=== PATIENT | female | born 1985 | race Two or more races ===

== ENCOUNTER 2024-05-09 04:42 | Emergency (ER) | payer BC, OTHER ==
[~2024-05-09] VITALS: Ht 172.7 cm; Wt 159.0 kg
--- NOTE | 2024-05-09 05:07 | ED.PDOC ---
Altered Mental Status HPI Comments 38-year-old female who came to ER via EMS for alcohol intoxication. Per EMS, patient was found at home lying unresponsive at the bathroom floor. Family members who found her and called paramedics started CPR on her. Patient has pulses but agonal breathing, given Narcan 2mg intranasal and another 2 mg IM. Family stated patient possibly overdose on Percocet and alcohol. Patient fully awake at this time of care, denies drinking alcohol, states she only used weed. Chief Complaint: ETOH Time Seen by MD: 05:06 Reviewed Notes: Personnel Scheduler Notes Information Source: Emergency Med Personnel Mode of Arrival: EMS Severity: Unable to Care for Self Timing: Minutes Duration: Since onset Prehospital treatment: Treatment (Narcan) Quality: Decreased Alertness, Change in Behavior Recent: Medication/Drug Abuse Past Medical History PAST MEDICAL HISTORY: Denies Surgical History: Denies all surgeries LEAN FACILITATOR History: Denies all LEAN FACILITATOR Hx Family History Family History: Reviewed,noncontributory to illness Social History Smoker: Non-Smoker Alcohol: Occasionally Drugs: Denies Drug Use Lives In: Home Unable to Obtain due to: Altered Mental Status Physical Exam General Appearance: No Apparent Distress, Normal HEENT: Normal ENT Inspection, Pharynx Normal, TMs Normal Neck: Full Range of Motion, Non-Tender, Normal, Normal Inspection Respiratory: Chest Non-Tender, Lungs Clear, No Accessory Muscle Use, No Respiratory Distress, Normal Breath Sounds Cardiovascular: No Edema, No JVD, No Murmur, No Gallop, Normal Peripheral Pulses, Regular Rate/Rhythm Breast Exam: Deferred Gastrointestinal: No Organomegaly, Non Tender, No Pulsatile Mass, Normal Bowel Sounds, Soft Genitalia: Deferred Pelvic: Deferred Rectal: Deferred Extremities: No calf tenderness, Normal capillary refill, Normal inspection, Normal range of motion, Non-tender, No pedal edema Musculoskeletal : Apperance: Normal Neurologic: Alert, florist II-XII nml as Tested, No Motor Deficits, Normal Affect, Normal Mood, No Sensory Deficits Cerebellar Function: Normal Reflexes: Normal Skin: Dry, Normal Color, Warm Lymphatic: No Adenopathy Was a procedure done? Was a procedure done?: No Differential Diagnosis (ALOC) Differential Diagnosis: Encephalopathy, Closed Head Injury, Drug Overdose, ETOH Intoxication X-Ray, Labs, Meds, VS Vital Signs Date Time Temp Pulse Resp B/P (MAP) Pulse Ox O2 Delivery O2 Flow Rate FiO2 12/7/24 05:47 97.9 89 12 123/62 (82) 99 97.9 05/09/24 04:53 109 05/09/24 04:42 98.3 102 26 90/62 (71) 99 Time of 1ST Reevaluation: 05:00 Reevaluation 1ST: Unchanged Patient Education/Counseling: Diagnosis, Treatment Family Education/Counseling: No Family Present Departure 1 Departure Time of Disposition: 05:55 (Patient appears intoxicated however patient denies any alcohol ingestion. Patient's unsure of what else she did. We will check patient's labs and observe her until clinically sober.) Impression: Primary Impression: Intoxication Disposition: 30 STILL A PATIENT Condition: Serious Critical Care Note Critical Care Time?: No Stability Stability form required: No Heart Score Heart Score: Heart Score Response (Comments) Value History N/A 0 EKG N/A 0 Age N/A 0 Risk Factors N/A 0 Troponin N/A 0 Total 0 I personally scribed for DONALD FERRIS MD ([email or web address]) on 05/09/24 at 05:07. Electronically submitted by Garry Macias ([email or web address]). DONALD FERRIS MD May 09, 2024 05:07
[2024-05-09 05:54] VITALS: PULSE 89; RESP 12; O2SAT 99
[2024-05-09 07:18] LABS: Urine Bacteria None Seen /hpf (None Seen)
[2024-05-09 07:43] LABS: Amphetamine Screen, Urine Neg (NEGATIVE); Urine Blood Negative /uL (Negative); Urine Clarity Turbid (Clear); Urine Color Colorless (Yellow); Urine Hyaline Cast FEW /lpf (0 - 2); Urine Mucus FEW (None Seen); Urine Protein, UAD TRACE (Negative); Urine Specific Gravity 1.019 (1.001-1.035); Urine Urobilinogen Normal (Negative); Urine WBC 7 /hpf (0 - 5); Urine pH 5.5 (5.0-9.0)
[2024-05-09 07:44] LABS: Barbiturate Scree,Urine Neg (NEGATIVE); Benzodiazephine Screen, Urine Neg (NEGATIVE); Cannabinoid Screen, Urine Pos (NEGATIVE); Cocaine Screen, Urine Neg (NEGATIVE); Opiate Scree,Urine Neg (NEGATIVE); Phencyclidine Screen, Urine Neg (NEGATIVE)
[2024-05-09 08:00] VITALS: PULSE 78; RESP 18; TEMP 97.6; O2SAT 97
[2024-05-09 08:23] LABS: Anion Gap 8 (5-15); Carbon Dioxide 29 mmol/L (20-31); Chloride 104 mmol/L (98-107); Potassium 4.1 mmol/L (3.5-5.1); Sodium 141 mmol/L (136-145)
[2024-05-09 08:24] LABS: Calcium 9.3 mg/dL (8.7-10.4)
[2024-05-09 08:29] LABS: BUN/Creatinine Ratio 15.6 (10.0-20.0); Blood Alcohol < 3.0 mg/dL (<10); Blood Urea Nitrogen 14 mg/dL (9-23)
[2024-05-09 08:31] LABS: Basophils # (auto) 0 10 ^3/uL (0-0.2); Basophils % (auto) 0.1 % (0.0-2.0); Eosinophils # (auto) 0 10 ^3/uL (0-0.8); Eosinophils % (auto) 0.1 % (0.0-7.0); Hematocrit 41.4 % (36.0-46.0); Lymphocytes # (auto) 1.1 10 ^3/uL (0.4-5.4); Lymphocytes % (auto) 7.7 % (10.0-50.0); Mean Corpuscular Hemoglobin 31.7 pg (28.0-32.0); Mean Corpuscular Hgb Conc. 33.8 g/dL (32.0-36.0); Mean Corpuscular Volume 93.6 fL (80.0-100.0); Monocytes # (auto) 0.8 10 ^3/uL (0-1.3); Monocytes % (auto) 5.4 % (0.0-12.0); Neutrophils # (auto) 12.8 10 ^3/uL (1.6-8.6); Neutrophils % (auto) 86.7 % (37.0-80.0); Platelet Count (auto) 327 10^3/uL (140-450); Red Blood Cells 4.43 10^6/uL (4.0-5.20); Red Cell Distribution Width 14.3 % (11.8-14.3); White Blood Cell 14.7 10^3/uL (4.4-10.8)
[2024-05-09 08:33] LABS: Glucose 117 mg/dL (74-106)
[2024-05-09 09:06] LABS: Salicylate < 3.0 mg/dL (-30)
[2024-05-09 09:26] LABS: Acetaminophen < 2.0 UG/ML (10.0-20.0)
[2024-05-09 10:04] VITALS: BP 127/70; PULSE 83; RESP 12; O2SAT 97
--- NOTE | 2024-05-11 14:49 | ECG ---
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
== END 2024-05-09 11:18 | disposition home or self-care (01) ==
LOC: EDBD 04:42 → ER 04:42
DX: F10.129 Alcohol abuse with intoxication, unspecified (principal); Z79.899 Other long term (current) drug therapy; Y90.0 Blood alcohol level of less than 20 mg/100 ml
CPT/HCPCS: 36415; 80048; 80307; 80320; 80329; 81001; 84702; 85025; 93005